=== PATIENT | male | born 1950 | race Caucasian/White ===

== ENCOUNTER 2017-04-21 13:03 | Observation (INO) ==
--- NOTE | 2017-04-21 13:22 | Emergency Department Note ---
Disposition Clinical Impression: Alcohol abuse, History of fall Disposition: Admitted As Inpatient Condition: Critical General Adult HPI - General Chief complaint: ED Psychiatric Symptoms Stated complaint: withdrawal from alcohol Time Seen by Provider: 04/21/17 13:20 Source: patient, family Limitations: no limitations - History of Present Illness Pain Scale: 0 - Related Data Home Medications Medication Instructions Recorded Confirmed Budesonide/Formoterol 160/4.5 2 puff IH BIDR 09/04/16 04/21/17 [Symbicort 160/4.5] Temazepam [Restoril] 30 mg PO HS 11/06/16 04/21/17 Albuterol Sulfate [Proair 2 puff IH Q4-6H PRN 04/21/17 04/21/17 Respiclick] Aspirin Enteric Coated [Aspirin EC] 81 mg PO DAILY 04/21/17 04/21/17 Kathe Back & Body 1 tab PO Q6H PRN 04/21/17 04/21/17 Cod Liver Oil 1 each PO DAILY 04/21/17 04/21/17 Cyanocobalamin (Vitamin B-12) 1,000 mcg PO DAILY 04/21/17 04/21/17 [Vitamin B12] Melatonin 10 mg PO HS PRN 04/21/17 04/21/17 Multivit-Min/FA/Lycopen/Lutein 1 each PO DAILY 04/21/17 04/21/17 [Centrum Silver Tablet] Vitamin B Complex [B Complex] 1 each PO DAILY 04/21/17 04/21/17 Vitamin E (Dl,Tocopheryl Acet) 400 unit PO BID 04/21/17 04/21/17 [Vitamin E] Allergies Allergy/AdvReac Type Severity Reaction Status Date / Time No Known Allergies Allergy Verified 11/06/16 11:53 Past Medical History - Past Medical History Medical history: Reports: COPD Surgical history: Reports: appendectomy Psychiatric history: Reports: no psych history - Social History Smoking Status: Current every day smoker Smokeless Tobacco Status: No Alcohol use: Reports: heavy Drug use: Reports: none Physical Exam - General Limitations: no limitations General appearance: alert, in no apparent distress Course Vital Signs Temperature 97.6 F 04/21/17 13:06 Pulse Rate 115 04/21/17 13:06 Respiratory Rate 20 04/21/17 13:06 Blood Pressure 147/95 04/21/17 13:06 O2 Sat by Pulse Oximetry 95 04/21/17 13:06 Temperature 97.5 F L 04/21/17 17:08 Pulse Rate 95 04/21/17 17:08 Respiratory Rate 18 04/21/17 17:08 Blood Pressure 145/84 04/21/17 17:08 O2 Sat by Pulse Oximetry 96 04/21/17 17:19 Oxygen Delivery Oxygen Delivery Room Air Medical Decision Making - Lab Data Result diagrams: 04/21/17 13:58 04/21/17 13:58 Lab Results 04/21/17 04/21/17 04/21/17 Range/Units 13:58 13:58 13:58 WBC 5.6 (4.3-11.1) K/mcL RBC 4.19 (4.19-5.50) M/mcL Hgb 14.9 (12.9-16.9) g/dL Hct 43.3 (37.5-50.1) % MCV 103.3 H (83.0-100.0) fL MCH 35.6 H (28.0-33.3) pg MCHC 34.4 (31.6-35.5) g/dL RDW 11.8 (11.5-14.5) % Plt Count 85 L (140-400) K/mcL MPV 9.5 (9.4-12.4) fL Immature Gran % 0.2 (0-4) % Seg Neutrophils % 76.9 % Lymphocytes % 11.9 % Monocytes % 8.6 % Eosinophils % 1.1 % Basophils % 1.3 % Neutrophils # 4.3 (1.6-8.9) K/mcL Lymphocytes # 0.7 (0.6-4.6) K/mcL Monocytes # 0.5 (0.0-1.3) K/mcL Eosinophils # 0.1 (0.0-0.6) K/mcL Basophils # 0.1 (0.0-0.2) K/mcL Immature Plt Fraction 5.8 (1.1-6.1) % Sodium 141 (136-145) mEq/L Potassium 3.6 (3.5-4.5) mEq/L Chloride 97 L (98-109) mEq/L Carbon Dioxide 26 (19-29) mEq/L BUN 13 (8-26) mg/dL Creatinine 0.64 L (0.72-1.25) mg/dL Est GFR ( Amer) > 60 (> 60) Est GFR (Non-Af Amer) > 60 (> 60) BUN/Creatinine Ratio 20 (6-26) Glucose 80 (70-99) mg/dL Calculated Osmolality 291 (280-300) Calcium 9.5 (8.6-10.8) mg/dL Magnesium 1.6 (1.6-2.6) mg/dL Total Bilirubin 1.9 H (0.2-1.2) mg/dL Direct Bilirubin 1.0 H (0.0-0.5) mg/dL Indirect Bilirubin 0.9 (0.0-1.2) mg/dL AST 267 H (5-34) Units/L ALT 133 H (0-55) Units/L Alkaline Phosphatase 74 (38-126) Units/L Serum Total Protein 7.5 (6.0-8.3) g/dL Albumin 3.9 (3.5-5.0) g/dL Globulin 3.6 H (2.4-3.5) g/dL Albumin/Globulin Ratio 1.1 (1.1-2.2) Salicylates < 5.0 L (15-30) mg/dL Acetaminophen < 1.0 L (10-30) mcg/mL Ethyl Alcohol 246 H (0-10) mg/dL Attestation Statement - Attestation Attestation: I examined this patient and my medical decision-making was reviewed with the MAIL CARRIER AND CLERK/PA/Advanced Practice Nurse/Resident Physician. I agree with the documented findings, disposition and treatment plan as described except to the extent set forth below. [id number] time provided Family brings patient to the emergency department with concerns for altered mental status and alcohol withdrawal. Patient is disheveled on exam but not in any acute distress. He is mildly tachycardic
[2017-04-21] MEDS ORDERED: diazePAM 10 MG/2 ML SYRINGE IVP ONE (13:24)
--- NOTE | 2017-04-21 13:46 | Emergency Department Note ---
Disposition Clinical Impression: Alcohol abuse, History of fall Disposition: Admitted As Inpatient Condition: Critical Referrals: NO,PCP [Primary Care Provider] - Forms: ED Satisfaction Letter Time of Disposition: 14:38 General Adult HPI - General Chief complaint: ED Psychiatric Symptoms Stated complaint: withdrawal from alcohol Time Seen by Provider: 04/21/17 13:20 Source: patient, family Limitations: no limitations - History of Present Illness HPI Narrative: Mr. Mathis, a 66yo male, brought by son for hx alcoholism. Reports dizziness, confusion, falls for the past 3 months. He realizes he has had enough and wishes to quit. PMH: COPD Meds: Advair, ProAir Habits: EtOH - 750mL day vodka + several beers daily since early adulthood. Last drink was last night. ROS: Pos: Chronic calculus, falls, confusion, dizziness Neg: Fever, chills, nausea, vomiting, abdominal pain, chest pains, palpitations , unusual weakness or fatigue Pain Scale: 0 - Related Data Home Medications Medication Instructions Recorded Confirmed Budesonide/Formoterol 160/4.5 2 puff IH BIDR 09/04/16 09/04/16 [Symbicort 160/4.5] DiphenhydraMINE [Benadryl] 25 mg PO HS 09/04/16 09/04/16 Mucinex 11/06/16 11/06/16 Temazepam 11/06/16 Previous Rx's Medication Instructions Recorded Folic Acid 1 mg PO DAILY #60 tablet 09/10/16 Thiamine (B-1) [Vitamin B-1] 100 mg PO DAILY #60 tablet 09/10/16 Hydrocodone/Acetaminophen [[place] 1 tab PO Q6H PRN #16 tab 11/06/16 5-325 Tablet] Ibuprofen [Motrin] 800 mg PO Q8HR PRN #30 tablet 11/06/16 Allergies Allergy/AdvReac Type Severity Reaction Status Date / Time No Known Allergies Allergy Verified 11/06/16 11:53 All systems ED: reviewed and negative except as stated. Past Medical History - Past Medical History Medical history: Reports: COPD Surgical history: Reports: appendectomy Psychiatric history: Reports: no psych history - Social History Smoking Status: Current every day smoker Smokeless Tobacco Status: No Alcohol use: Reports: heavy Drug use: Reports: none Physical Exam Vital Signs Reviewed General: Patient is alert, oriented, and in no acute distress. He appears cachectic with likely protein calorie malnutrition. HEENT: No facial asymmetry. Head is normocephalic. Mild ecchymosis at the temporal corner of the right eye without swelling, abrasion, laceration. PERRLA , EOMI. oral mucosa moist. Trachea midline. Cardiovascular: Heart regular rate and rhythm without clicks, rubs, gallops, or murmurs. No JVD. PMI nondisplaced. No pedal edema. Bilateral radial and posterior tibial pulses 2/4. No carotid bruit. Respiratory: Symmetric chest rise with good respiratory effort. Bilateral breath sounds are clear without wheezing, crackles, or rhonchi. Abdomen: Scaphoid abdomen. Bowel sounds present normoactive x-4 quadrants. Abdomen is soft, nondistended, and nontender. No organomegaly noted. Musculoskeletal: Spontaneously moving all extremities. Neuro: Cranial nerves II through XII without deficit. Sensation light touch intact. Skin: Ecchymosis down patient's bilateral legs with superficial abrasions over the bony prominences of his patella and fibular head. Eschar on patient's left forearm and left upper arm. Psych: Patient's affect is appropriate for situation. - General Limitations: no limitations General appearance: alert, in no apparent distress Course Course Narrative: Concern for wernicke's (confusion, ataxia/falls, however no nystagmus on exam) as well as delirium tremors, electrolyte imbalances, and withdrawal. Patient's lab work is unremarkable. Alcohol level 246. Spoke with the admitting hospitalist, Dr. Vick, who agrees to accept the patient for alcohol detoxification/withdrawal, history for falls, history of inability to care for himself. Vital Signs Temperature 97.6 F 04/21/17 13:06 Pulse Rate 115 04/21/17 13:06 Respiratory Rate 20 04/21/17 13:06 Blood Pressure 147/95 04/21/17 13:06 O2 Sat by Pulse Oximetry 04/21/17 13:06 Temperature 97.6 F 04/21/17 13:06 Pulse Rate 97 04/21/17 13:40 Respiratory Rate 19 04/21/17 13:40 Blood Pressure 146/87 04/21/17 13:40 O2 Sat by Pulse Oximetry 95 04/21/17 13:40 Oxygen Delivery Oxygen Delivery Room Air Medical Decision Making - Lab Data Result diagrams: 04/21/17 13:58 04/21/17 13:58 Lab Results 04/21/17 04/21/17 04/21/17 Range/Units 13:58 13:58 13:58 WBC 5.6 (4.3-11.1) K/mcL RBC 4.19 (4.19-5.50) M/mcL Hgb 14.9 (12.9-16.9) g/dL Hct 43.3 (37.5-50.1) % MCV 103.3 H (83.0-100.0) fL MCH 35.6 H (28.0-33.3) pg MCHC 34.4 (31.6-35.5) g/dL RDW 11.8 (11.5-14.5) % Plt Count 85 L (140-400) K/mcL MPV 9.5 (9.4-12.4) fL Immature Gran % 0.2 (0-4) % Seg Neutrophils % 76.9 % Lymphocytes % 11.9 % Monocytes % 8.6 % Eosinophils % 1.1 % Basophils % 1.3 % Neutrophils # 4.3 (1.6-8.9) K/mcL Lymphocytes # 0.7 (0.6-4.6) K/mcL Monocytes # 0.5 (0.0-1.3) K/mcL Eosinophils # 0.1 (0.0-0.6) K/mcL Basophils # 0.1 (0.0-0.2) K/mcL Immature Plt Fraction 5.8 (1.1-6.1) % Sodium 141 (136-145) mEq/L Potassium 3.6 (3.5-4.5) mEq/L Chloride 97 L (98-109) mEq/L Carbon Dioxide 26 (19-29) mEq/L BUN 13 (8-26) mg/dL Creatinine 0.64 L (0.72-1.25) mg/dL Est GFR ( Amer) > 60 (> 60) Est GFR (Non-Af Amer) > 60 (> 60) BUN/Creatinine Ratio 20 (6-26) Glucose 80 (70-99) mg/dL Calculated Osmolality 291 (280-300) Calcium 9.5 (8.6-10.8) mg/dL Magnesium 1.6 (1.6-2.6) mg/dL Total Bilirubin 1.9 H (0.2-1.2) mg/dL Direct Bilirubin 1.0 H (0.0-0.5) mg/dL Indirect Bilirubin 0.9 (0.0-1.2) mg/dL AST 267 H (5-34) Units/L ALT 133 H (0-55) Units/L Alkaline Phosphatase 74 (38-126) Units/L Serum Total Protein 7.5 (6.0-8.3) g/dL Albumin 3.9 (3.5-5.0) g/dL Globulin 3.6 H (2.4-3.5) g/dL Albumin/Globulin Ratio 1.1 (1.1-2.2) Salicylates < 5.0 L (15-30) mg/dL Acetaminophen < 1.0 L (10-30) mcg/mL Ethyl Alcohol 246 H (0-10) mg/dL
[2017-04-21 14:07] LABS: Eosinophils % 1.1 %
[2017-04-21 14:09] LABS: Basophils # 0.1 K/mcL (0.0-0.2); Basophils % 1.3 %; Eosinophils # 0.1 K/mcL (0.0-0.6); Hematocrit 43.3 % (37.5-50.1); Hemoglobin 14.9 g/dL (12.9-16.9); Immature Granulocytes % 0.2 % (0-4); Immature Platelets 5.8 % (1.1-6.1); Lymphocytes # 0.7 K/mcL (0.6-4.6); Lymphocytes % 11.9 %; Mean Corpuscular HGB Conc 34.4 g/dL (31.6-35.5); Mean Corpuscular Hemoglobin 35.6 pg (28.0-33.3); Mean Corpuscular Volume 103.3 fL (83.0-100.0); Mean Platelet Volume 9.5 fL (9.4-12.4); Monocytes # 0.5 K/mcL (0.0-1.3); Monocytes % 8.6 %; Neutrophils # 4.3 K/mcL (1.6-8.9); Red Blood Count 4.19 M/mcL (4.19-5.50); Red Cell Distribution Width 11.8 % (11.5-14.5); Segmented Neutrophils % 76.9 %
[2017-04-21 14:21] LABS: Alanine Aminotransferase 133 Units/L (0-55); Albumin 3.9 g/dL (3.5-5.0); Albumin/Globulin Ratio 1.1 (1.1-2.2); Alkaline Phosphatase 74 Units/L (38-126); Aspartate Amino Transferase 267 Units/L (5-34); BUN/Creatinine Ratio 20 (6-26); Bilirubin,Indirect 0.9 mg/dL (0.0-1.2); Bilirubin,Total 1.9 mg/dL (0.2-1.2); Blood Urea Nitrogen 13 mg/dL (8-26); Calcium 9.5 mg/dL (8.6-10.8); Carbon Dioxide 26 mEq/L (19-29); Chloride 97 mEq/L (98-109); Ethanol 246 mg/dL (0-10); Globulin 3.6 g/dL (2.4-3.5); Glucose 80 mg/dL (70-99); Osmolality,Calculated 291 (280-300); Potassium 3.6 mEq/L (3.5-4.5); Sodium 141 mEq/L (136-145); Total Protein 7.5 g/dL (6.0-8.3); eGFR For African Americans > 60 (> 60); eGFR For Non-African Americans > 60 (> 60)
[2017-04-21 14:23] LABS: Acetaminophen < 1.0 mcg/mL (10-30); Salicylate < 5.0 mg/dL (15-30)
[2017-04-21] MEDS: Thiamine (B-1) 100 MG, Folic Acid 1 MG, MVI, adult with vitamin K 10 ML in 0.9 % Sodi... IVPB SCH ×2 (14:25→20:54)
[2017-04-21 14:27] LABS: Platelet Count 85 K/mcL (140-400)
[2017-04-21] MEDS ORDERED: Nicotine 21 MG PATCH.TD24 TD SCH (15:15)
[2017-04-21] MEDS ORDERED: Acetaminophen 325 MG TABLET PO PRN (16:08)
[2017-04-21] MEDS ORDERED: Naloxone 0.4 MG/ML INJ IVP PRN (16:08)
[2017-04-21] MEDS ORDERED: *HR* LORazepam 2 MG/ML VIAL IVP PRN ×2 (16:14)
--- NOTE | 2017-04-21 16:41 | Internal Med History&Physical ---
<Mami Reynaga - Last Filed: 04/21/17 17:09> Date of Encounter: 04/21/17 Time of Encounter: 16:27 Assessment and Plan (1) Alcohol abuse Current visit: Yes Status: Acute 1 patient has a long history of alcohol abuse he drinks approximately 700 mL cephalic Daily as well as several beers. Patient requesting alcoholic rehabilitation. His last drink was last night. Presently no tremors noted we will place patient on CIWA precautions 2 continue with banana bag IV daily 3 contemplated placing patient on Librium however elevated LFTs may need Valium and Ativan is not adequate coverage 4 seizure precautions 5 fall precautions 6 we will consult social media marketer for alcohol rehabilitation placement 7 consult nutritional services (2) Cigarette smoker Current visit: No Status: Acute 1 encouraged patient to stop smoking. We will continue with the nicotine patch daily (3) Thrombocytopenia Current visit: No Status: Acute 1 presently patient's platelets 85. 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 Patient to continue with followup with neurology, consult as needed 2fall precaution 3 PT consult (5) Elevated LFTs Current visit: No Status: Acute 1 [id number], ALT 133 elevated hx of of ETOH abuse will continue to monitor 2 Avoid hepatoxins 3 advise seeing GI as outpatient and consult as needed (6) DVT prophylaxis Current visit: No Status: Acute Patient splints are 85 patient's high risk for falls we will place and SCDs for now (7) COPD (chronic obstructive pulmonary disease) Current visit: No Status: Chronic 1 Stable now conitnue with bronchodilators as needed 2 O2 as needed to maintain spo2 >92% Qualifiers: COPD type: unspecified COPD Qualified Code(s): J44.9 - Chronic obstructive pulmonary disease, unspecified Internal Medicine - H&P: HPI Chief complaint: I want to quit drinking Admitted From: Emergency Dept Plans for Post Hospital Care: Transfer Other History of present illness: Mr. Mathis is a 66 year old male has local history of COPD and alcohol abuse tobacco abuse. Information obtained from medical records patient and patient's son who is at bedside. According to patient he has a long history of alcohol use started when he was approximately 19 years old. He consumes 750 ML's of vodka Plus several beers daily. According to the son he has been experiencing increasing confusion falls over the past few months. He has a unsteady gait and he lives alone. The son states that proximally 7 AM the patient arrived at his home BP is Seferino Glover. With his son came out patient voiced that he did not want to live like this anymore and wanted to stop drinking. The patient states his last drink was last night. She was brought to the ER for further evaluation. According to ER records on presentation patient was slightly tachycardic heart rate 1:15 with he was given a banana bag as well as Valium. Lab work was obtained which did reveal some elevation in his LFTs. Rest of lab work was unremarkable. CT of head was obtained which showed no acute intracranial abnormalities or bleeds. Patient was admitted for further workup and evaluation. Presently patient appears cachectic, he has bruises in his lower extremities as well as upper extremities at several stages of healing as well as multiple abrasions. Patient states he frequently falls at least once or twice a month. Patient is alert and oriented 3 in however he questions several times who I am and if I will bring him something to eat. The question who the president of [facility] he does not know. Cranial nerves II through XII are intact. Noted horizontal nystagmus when gazing to right. Patient denies any recent head injuries. He denies any fevers chills nausea vomiting diarrhea he does admit to weight loss. He denies any melena hematochezia or hematemesis. No tremors or seizure activity noted at this time. Patient denies any previous seizure activity. His lung sounds are clear heart sounds S1 and S2 with no rubs clicks murmurs noted he is hemodynamically stable at this time. Discussed case with Dr. Gleason who agrees with plan Past Med Surg Social Fam HX - Past Medical History Medical history: COPD Psychiatric history: no psych history - Past Surgical History Surgical History: appendectomy - Social History Smoking Status: Current every day smoker Smokeless Tobacco Status: No Alcohol use: heavy Drug use: none - Family History Father Living Status: Age at : 82 Cause of : heart disease Internal Medicine - H&P: Meds Budesonide/Formoterol 160/4.5 [Symbicort 160/4.5] 2 puff IH BIDR 09/04/16 [ History] Temazepam [Restoril] 30 mg PO HS 11/06/16 [History] Albuterol Sulfate [Proair Respiclick] 2 puff IH Q4-6H PRN 04/21/17 [History] Aspirin Enteric Coated [Aspirin EC] 81 mg PO DAILY 04/21/17 [History] Kathe Back & Body 1 tab PO Q6H PRN 04/21/17 [History] Cod Liver Oil 1 each PO DAILY 04/21/17 [History] Cyanocobalamin (Vitamin B-12) [Vitamin B12] 1,000 mcg PO DAILY 04/21/17 [History ] Melatonin 10 mg PO HS PRN 04/21/17 [History] Multivit-Min/FA/Lycopen/Lutein [Centrum Silver Tablet] 1 each PO DAILY 04/21/17 [History] Vitamin B Complex [B Complex] 1 each PO DAILY 04/21/17 [History] Vitamin E (Dl,Tocopheryl Acet) [Vitamin E] 400 unit PO BID 04/21/17 [History] Allergies No Known Allergies Allergy (Verified 11/06/16 11:53) All Systems PM: A 10-system review of systems was performed and is negative for pertinent findings except as documented above in the HPI. - Constitutional Constitutional: anorexia, falls, weight loss, no chills, no fever(s), no night sweats - EENT Eyes: no change in vision, no discharge, no pain, no photophobia - Cardiovascular Cardiovascular ROS IM: no chest pain, no diaphoresis, no dyspnea, no lightheadedness, no palpitations, no syncope - Respiratory Respiratory: no cough, no dyspnea, no wheezing, no excessive phlegm production - Gastrointestinal Gastrointestinal: no abdominal pain, no diarrhea, no hematemesis, no hematochezia, no melena, no nausea, no vomiting - Musculoskeletal Musculoskeletal ROS IM: no numbness, no tingling - Integumentary Additional comments: Bruises as well as abrasions - Neurological Neurological ROS: abnormal gait, frequent falls - Psychiatric Psychiatric: confusion - Hematologic/Lymphatic Hematologic/Lymphatic: easy bleeding - Constitutional Vitals: Temp Pulse Resp BP Pulse Ox 97.6 F 85 13 114/85 96 04/21/17 13:06 04/21/17 15:02 04/21/17 16:04 04/21/17 16:04 04/21/17 15:02 General appearance: Present: cachectic, A&O X 3, answers questions appropriately - Head Head exam: Present: atraumatic, normocephalic - Eye Eye exam: Present: nystagmus, PERRL, conjuntiva pink, sclera anicteric Pupils: Present: PERRL - Neck Neck exam general surgery: Present: supple, trachea midline. Absent: lymphadenopathy - Respiratory Respiratory exam: Present: CTAB. Absent: accessory muscle use, rales, rhonchi, wheezes - Cardiovascular Cardiovascular exam: Present: RRR, +S1, +S2. Absent: diastolic murmur, gallop, rubs, systolic murmur - GI/Abdominal GI/Abdominal exam: Present: normal bowel sounds, soft, no peritoneal signs. Absent: distended, tenderness - Extremities Exam Extremities exam: Present: warm, radial pulses palpable and symetrical. Absent : calf tenderness, cyanotic, pedal edema - Neurological Exam Neurological exam: Present: CN II-XII intact, oriented X3, no focal deficits, strengths equal and symetr throughout. Absent: pronater drift, facial droop, speech deficit - Skin Skin exam: Present: abrasion, dry, intact Internal Med - H&P Results - Labs CBC & Chem 7: 04/21/17 13:58 04/21/17 13:58 - Diagnostic Studies Other Images Additional comments: Head CT 04/21/17 13:45 IMPRESSION: No acute intracranial abnormality. D/ / Mauricio Castañeda MD / Mauricio Castañeda MD Interpreting Provider: Mauricio Castañeda MD <Nuvia Vick - Last Filed: 04/21/17 19:39> Date of Encounter: 04/21/17 Internal Medicine - H&P: HPI History of present illness: Mr. Mathis is a 66 year old male All Systems PM: A 10-system review of systems was performed and is negative for pertinent findings except as documented above in the HPI. - Constitutional Vitals: Temp Pulse Resp BP Pulse Ox 98.0 F 85 14 158/75 94 04/21/17 18:49 04/21/17 18:49 04/21/17 18:49 04/21/17 18:49 04/21/17 18:49 Internal Med - H&P Results - Labs CBC & Chem 7: 04/21/17 13:58 04/21/17 13:58 - Attending Attestation I examined this patient and my medical decision-making was reviewed with the Resident Physician. I agree with the documented findings, disposition and treatment plan as described
[2017-04-21] MEDS: 0.9 % Sodium Chloride 1,000 ML IVC SCH (16:59)
[2017-04-21] MEDS: Ibuprofen 400 MG TABLET PO PRN (16:59)
[2017-04-21] MEDS ORDERED: Albuterol 2.5 MG/3 ML NEBULIZER IH PRN (17:09)
[2017-04-21] MEDS: Nicotine 2 MG GUM BC PRN (20:59)
[2017-04-21] MEDS: Temazepam 15 MG CAPSULE PO PRN (21:50)
[2017-04-21 22:40] LABS: Bilirubin,Urine Moderate (Negative); Blood,Urine Negative (Negative); Clarity,Urine Cloudy (Clear); Color,Urine Orange (Yellow); Glucose,Urine (UA) Normal (Normal); Ketones,Urine 80 mg/dL (Negative); Leukocyte Esterase,Urine Trace (Negative); Nitrite,Urine Negative (Negative); Protein,Urine 30 mg/dL (Neg-Trace); Specific Gravity,Urine > 1.030 (1.010-1.025); Urobilinogen,Urine Normal (Normal)
[2017-04-21 22:46] LABS: Amphetamine Screen,Urine Negative ng/mL (Cutoff=1000); Barbiturate Screen,Urine Negative ng/mL (Cutoff=200); Benzodiazepines Screen,Urine Positive ng/mL (Cutoff=200); Cannabinoid Screen,Urine Negative ng/mL (Cutoff = 50); Cocaine Screen,Urine Negative ng/mL (Cutoff= 300); Opiate Screen,Urine Negative ng/mL (Cutoff=300); Phencyclidine Screen,Urine Negative ng/mL (Cutoff=25)
[2017-04-21 22:52] LABS: Hyaline Casts,Urine Few per lpf (None-Few); Mucus,Urine Many (Few)
[2017-04-21 22:53] LABS: Bacteria,Urine Few per hpf (None-Few); RBC,Urine 0-3 per hpf (0-3); WBC,Urine 0-3 per hpf (0-3)
[2017-04-22 05:38] LABS: Basophils # 0.1 K/mcL (0.0-0.2); Basophils % 1.2 %; Eosinophils # 0.1 K/mcL (0.0-0.6); Eosinophils % 2.8 %; Hemoglobin 12.9 g/dL (12.9-16.9); Immature Granulocytes % 0.2 % (0-4); Immature Platelets 7.4 % (1.1-6.1); Lymphocytes # 0.5 K/mcL (0.6-4.6); Lymphocytes % 12.4 %; Mean Corpuscular HGB Conc 35.8 g/dL (31.6-35.5); Mean Corpuscular Hemoglobin 37.3 pg (28.0-33.3); Mean Platelet Volume 10.7 fL (9.4-12.4); Monocytes # 0.4 K/mcL (0.0-1.3); Monocytes % 9.2 %; Neutrophils # 3.2 K/mcL (1.6-8.9); Red Blood Count 3.46 M/mcL (4.19-5.50); Red Cell Distribution Width 11.9 % (11.5-14.5); Segmented Neutrophils % 74.2 %
[2017-04-22 05:58] LABS: Platelet Count 64 K/mcL (140-400)
[2017-04-22 06:04] LABS: BUN/Creatinine Ratio 25 (6-26); Blood Urea Nitrogen 15 mg/dL (8-26); Calcium 8.6 mg/dL (8.6-10.8); Carbon Dioxide 26 mEq/L (19-29); Chloride 101 mEq/L (98-109); Glucose 87 mg/dL (70-99); Magnesium 1.4 mg/dL (1.6-2.6); Osmolality,Calculated 288 (280-300); Sodium 139 mEq/L (136-145); eGFR For African Americans > 60 (> 60); eGFR For Non-African Americans > 60 (> 60)
[2017-04-22 06:06] LABS: Potassium 3.3 mEq/L (3.5-4.5)
[2017-04-22] MEDS: Nicotine 2 MG GUM BC PRN ×2 (06:40→12:03)
[2017-04-22] MEDS: Pantoprazole 40 MG VIAL IVP SCH (08:37)
[2017-04-22] MEDS: Potassium Chloride Elixir 20 MEQ/15 ML UDC PO SCH (08:37)
[2017-04-22] MEDS: 0.9 % Sodium Chloride 1,000 ML IVC SCH (13:20)
--- NOTE | 2017-04-22 17:04 | Internal Med Progress Note ---
Date of Encounter: 04/22/17 Time of Encounter: 17:01 - Assessment and plan (1) Alcohol abuse Current Visit: No Status: Chronic Assessment and plan: admitted for detox, he wishes to quit. no signs of withdrawal or seizures at this time continue CINY protocol. social work consult for placement. (2) Elevated LFTs Current Visit: No Status: Acute Assessment and plan: possible 2/2 Alcoholic liver disease. will hold libriium now. (3) COPD (chronic obstructive pulmonary disease) Current Visit: No Status: Chronic Assessment and plan: not in exacerbation. o2 prn. albuterol prn Qualifiers: COPD type: unspecified COPD Qualified Code(s): J44.9 - Chronic obstructive pulmonary disease, unspecified - Subjective Interval history: patient seen at the bedside, admitted for alcohol detox. he is a chronic drinker and wishes to quit. social work has been consulted, no signs of withdrawal as of now. - Constitutional Vitals: Temp Pulse Resp BP Pulse Ox 98.4 F 86 18 160/94 94 04/22/17 15:45 04/22/17 15:45 04/22/17 15:45 04/22/17 15:45 04/22/17 15:45 General appearance: Present: cachectic, disheveled, A&O X 3, answers questions appropriately Exam: neck- supple chest- b/l clear, no added sounds CVS-s1 and s2, no mr/g abd-soft, non tender, bs are present ext- no edema ,no tremors or tongue fasciculations Internal Medicine: Result - Labs CBC & Chem 7: 04/22/17 04:54 04/22/17 04:54 Labs: Short CBC 04/22/17 Range/Units 04:54 WBC 4.3 (4.3-11.1) K/mcL Hgb 12.9 D (12.9-16.9) g/dL Hct 36.0 L (37.5-50.1) % Plt Count 64 L (140-400) K/mcL Neutrophils # 3.2 (1.6-8.9) K/mcL BMP 04/22/17 04:54 Sodium 139 Potassium 3.3 L Chloride 101 Carbon Dioxide 26 BUN 15 Creatinine 0.61 L Glucose 87 Calcium 8.6 Urine 04/21/17 Range/Units 22:27 Urine Color [place] A (Yellow) Urine Clarity Cloudy A (Clear) Urine pH 6.0 (5.0-8.0) pH Units Ur Specific [place] > 1.030 H (1.010-1.025) Urine Protein 30 H (Neg-Trace) mg/dL Urine Glucose (UA) Normal (Normal) mg/dL Consult Discharge Plan - Plan Referrals: Maria L Quick CNP [Advanced Practice Nurse] - 05/13/17 11:00 am
[2017-04-22] MEDS: Thiamine (B-1) 100 MG, Folic Acid 1 MG, MVI, adult with vitamin K 10 ML in 0.9 % Sodi... IVPB SCH (18:17)
[2017-04-22] MEDS: Temazepam 15 MG CAPSULE PO PRN (20:43)
[2017-04-22] MEDS: Ibuprofen 400 MG TABLET PO PRN (20:43)
[2017-04-23] MEDS: Pantoprazole 40 MG VIAL IVP SCH (07:53)
[2017-04-23] MEDS: Potassium Chloride Elixir 20 MEQ/15 ML UDC PO SCH (07:53)
[2017-04-23] MEDS: Nicotine 2 MG GUM BC PRN ×5 (09:18→18:44)
[2017-04-23] MEDS: 0.9 % Sodium Chloride 1,000 ML IVC SCH (09:18)
[2017-04-23] MEDS ORDERED: *HR* LORazepam 2 MG/ML VIAL IVP ONE (11:17)
--- NOTE | 2017-04-23 15:10 | Consult Note ---
Date of Encounter: 04/23/17 Time of Encounter: 14:40 Assessment & Recommendation (1) Alcohol dependence with alcohol-induced mood disorder Current visit: Yes Status: Acute Assessment & Recommendation: I discussed with the patient treatment options for depression including medication and therapy. He is agreeable to start a new medication, I discussed with him benefits and side effects of mirtazapine that will help him with sleep and appetite. He is willing to try it. Also I recommended that he seek individual therapy that will address his alcohol dependence and depression, he is agreeable also. Patient will be started on mirtazapine 15 mg at bedtime. There is no acute psychiatric condition that requires inpatient psychiatric hospitalization. Recommend referral to outpatient substance abuse and mental health resources. Thank you for consultation. History of Present Illness Patient: new to practice Requesting Physician: Basia Tam MD Reason for consult: Depression and alcohol dependence History of present illness: Mr. Mathis is a 66 year old male admitted for alcohol detoxification. Psychiatric consultation was requested to evaluate depression. From the records patient had long history of alcohol dependence and his alcohol level on admission was 246. UDS was positive for benzodiazepine. Patient was reported to have lost weight with a BMI of 16.7. Patient stated that he was given some antidepressants in the past and did not like its and stopped taking. He denied any previous psychiatric treatments or admissions to Hospital and denies any history of suicide attempts. He was concerned about his sleep and willing to take medication to help him sleep. He denied any suicidal ideation. When he was recovering well from his intoxication and his last CIWA score was 1. CC: Basia Tam MD Past Med Surg Social Fam HX - Past Medical History Medical history: COPD - Past Surgical History Surgical History: appendectomy - Social History Smoking Status: Current every day smoker Smokeless Tobacco Status: No Alcohol use: heavy Drug use: none - Family History Father Living Status: Age at : 82 Cause of : heart disease Medications & Allergies Budesonide/Formoterol 160/4.5 [Symbicort 160/4.5] 2 puff IH BIDR 09/04/16 [ History] Temazepam [Restoril] 30 mg PO HS 11/06/16 [History] Albuterol Sulfate [Proair Respiclick] 2 puff IH Q4-6H PRN 04/21/17 [History] Aspirin Enteric Coated [Aspirin EC] 81 mg PO DAILY 04/21/17 [History] Kathe Back & Body 1 tab PO Q6H PRN 04/21/17 [History] Cod Liver Oil 1 each PO DAILY 04/21/17 [History] Cyanocobalamin (Vitamin B-12) [Vitamin B12] 1,000 mcg PO DAILY 04/21/17 [History ] Melatonin 10 mg PO HS PRN 04/21/17 [History] Multivit-Min/FA/Lycopen/Lutein [Centrum Silver Tablet] 1 each PO DAILY 04/21/17 [History] Vitamin B Complex [B Complex] 1 each PO DAILY 04/21/17 [History] Vitamin E (Dl,Tocopheryl Acet) [Vitamin E] 400 unit PO BID 04/21/17 [History] Walker W Wheels [WHEELED WALKER] 1 each .ROUTE AD #1 each 04/23/17 [Rx] Allergies No Known Allergies Allergy (Verified 11/06/16 11:53) Mental Status Exam Patient orientation: Yes Person, Yes Time, Yes Place Level of alertness: Alert Patient appearance: Appropriate, Unkempt, Disheveled, Mal-nourished, Thin Behavior: calm, cooperative Psychomotor activity: Slowed Eye contact: Maintains Eye Contact Mood description: Anxious, Irritable Affect description: congruent with mood, constricted Speech pattern: Normal rate, Normal rhythm, Normal tone Speech volume: Normal Thought process: Linear, Goal Oriented Thought content: No Suicidal ideation, No Homicidal ideation, No Overt delusions Perceptual disturbances: No Auditory hallucinations, No Visual hallucinations Attention span: Capable of Focused Attention Memory description: Grossly Intact Patient reliability: Reliable Historian Intelligence estimate: Average Judgment: Limited Insight: Partial Results - Vital Signs Vital signs: Temp Pulse Resp BP Pulse Ox 98.5 F 98 16 120/83 97 04/23/17 11:31 04/23/17 11:31 04/23/17 11:31 04/23/17 11:31 04/23/17 11:31 - Labs Labs: Laboratory Last Values WBC 4.3 K/mcL (4.3-11.1) 04/22/17 04:54 RBC 3.46 M/mcL (4.19-5.50) L 04/22/17 04:54 Hgb 12.9 g/dL (12.9-16.9) D 04/22/17 04:54 Hct 36.0 % (37.5-50.1) L 04/22/17 04:54 MCV 104.0 fL (83.0-100.0) H 04/22/17 04:54 MCH 37.3 pg (28.0-33.3) H 04/22/17 04:54 MCHC 35.8 g/dL (31.6-35.5) H 04/22/17 04:54 RDW 11.9 % (11.5-14.5) 04/22/17 04:54 Plt Count 64 K/mcL (140-400) L 04/22/17 04:54 MPV 10.7 fL (9.4-12.4) 04/22/17 04:54 Immature Gran % 0.2 % (0-4) 04/22/17 04:54 Seg Neutrophils % 74.2 % 04/22/17 04:54 Lymphocytes % 12.4 % 04/22/17 04:54 Monocytes % 9.2 % 04/22/17 04:54 Eosinophils % 2.8 % 04/22/17 04:54 Basophils % 1.2 % 04/22/17 04:54 Neutrophils # 3.2 K/mcL (1.6-8.9) 04/22/17 04:54 Lymphocytes # 0.5 K/mcL (0.6-4.6) L 04/22/17 04:54 Monocytes # 0.4 K/mcL (0.0-1.3) 04/22/17 04:54 Eosinophils # 0.1 K/mcL (0.0-0.6) 04/22/17 04:54 Basophils # 0.1 K/mcL (0.0-0.2) 04/22/17 04:54 Immature Plt Fraction 7.4 % (1.1-6.1) H 04/22/17 04:54 Sodium 139 mEq/L (136-145) 04/22/17 04:54 Potassium 3.3 mEq/L (3.5-4.5) L 04/22/17 04:54 Chloride 101 mEq/L (98-109) 04/22/17 04:54 Carbon Dioxide 26 mEq/L (19-29) 04/22/17 04:54 BUN 15 mg/dL (8-26) 04/22/17 04:54 Creatinine 0.61 mg/dL (0.72-1.25) L 04/22/17 04:54 Est GFR ( Amer) > 60 (> 60) 04/22/17 04:54 Est GFR (Non-Af Amer) > 60 (> 60) 04/22/17 04:54 BUN/Creatinine Ratio 25 (6-26) 04/22/17 04:54 Glucose 87 mg/dL (70-99) 04/22/17 04:54 POC Glucose 170 (58-89) H 04/21/17 17:34 Calculated Osmolality 288 (280-300) 04/22/17 04:54 Calcium 8.6 mg/dL (8.6-10.8) 04/22/17 04:54 Magnesium 1.4 mg/dL (1.6-2.6) L 04/22/17 04:54 Total Bilirubin 1.9 mg/dL (0.2-1.2) H 04/21/17 13:58 Direct Bilirubin 1.0 mg/dL (0.0-0.5) H 04/21/17 13:58 Indirect Bilirubin 0.9 mg/dL (0.0-1.2) 04/21/17 13:58 AST 267 Units/L (5-34) H 04/21/17 13:58 ALT 133 Units/L (0-55) H 04/21/17 13:58 Alkaline Phosphatase 74 Units/L (38-126) 04/21/17 13:58 Serum Total Protein 7.5 g/dL (6.0-8.3) 04/21/17 13:58 Albumin 3.9 g/dL (3.5-5.0) 04/21/17 13:58 Globulin 3.6 g/dL (2.4-3.5) H 04/21/17 13:58 Albumin/Globulin Ratio 1.1 (1.1-2.2) 04/21/17 13:58 Urine Color [place] (Yellow) A 04/21/17 22:27 Urine Clarity Cloudy (Clear) A 04/21/17 22:27 Urine pH 6.0 pH Units (5.0-8.0) 04/21/17 22:27 Ur Specific [place] > 1.030 (1.010-1.025) H 04/21/17 22:27 Urine Protein 30 mg/dL (Neg-Trace) H 04/21/17 22:27 Urine Glucose (UA) Normal mg/dL (Normal) 04/21/17 22: Urine Ketones 80 mg/dL (Negative) H 04/21/17 22:27 Urine Blood Negative (Negative) 04/21/17 22:27 Urine Nitrite Negative (Negative) 04/21/17 22: Urine Bilirubin Moderate (Negative) H 04/21/17 22:27 Urine Urobilinogen Normal mg/dL (Normal) 04/21/17 22:27 Ur Leukocyte Esterase Trace (Negative) H 04/21/17 22:27 Urine Microscopic RBC 0-3 per hpf (0-3) 04/21/17 22:27 Urine Microscopic WBC 0-3 per hpf (0-3) 04/21/17 22:27 Urine Bacteria Few per hpf (None-Few) 04/21/17 22: Hyaline Casts Few per lpf (None-Few) 04/21/17 22:27 Urine Mucus Many (Few) H 04/21/17 22:27 Salicylates < 5.0 mg/dL (15-30) L 04/21/17 13:58 Urine Opiates Screen Negative ng/mL (Tbgziu=358) 04/21/17 22:27 Acetaminophen < 1.0 mcg/mL (10-30) L 04/21/17 13:58 Ur Barbiturates Screen Negative ng/mL (Fuaaxu=915) 04/21/17 22:27 Ur Phencyclidine Scrn Negative ng/mL (Cutoff=25) 04/21/17 22:27 Ur Amphetamines Screen Negative ng/mL (Vceiws=2549) 04/21/17 22:27 U Benzodiazepines Scrn Positive ng/mL (Dgayxd=459) H 04/21/17 22:27 Urine Cocaine Screen Negative ng/mL (Cutoff= 300) 04/21/17 22:27 U Marijuana (THC) Screen Negative ng/mL (Cutoff = 50) 04/21/17 22:27 Ethyl Alcohol 246 mg/dL (0-10) H 04/21/17 13:58 Consult Discharge Plan - Plan Referrals: Maria L Quick, [employer]INTER [employer]ADER [Advanced Practice Nurse] - 05/13/17 11:00 am
--- NOTE | 2017-04-23 17:05 | Internal Med Progress Note ---
Date of Encounter: 04/23/17 Time of Encounter: 17:01 - Assessment and plan (1) Alcohol abuse Current Visit: No Status: Chronic Assessment and plan: admitted for detox, he wishes to quit. no signs of withdrawal or seizures at this time continue CIWA protocol. PT/OT recommended HH. (2) Elevated LFTs Current Visit: No Status: Acute Assessment and plan: possible 2/2 Alcoholic liver disease. will hold libriium now. (3) COPD (chronic obstructive pulmonary disease) Current Visit: No Status: Chronic Assessment and plan: not in exacerbation. o2 prn. albuterol prn Qualifiers: COPD type: unspecified COPD Qualified Code(s): J44.9 - Chronic obstructive pulmonary disease, unspecified (4) Depression Current Visit: Yes Status: Acute Assessment and plan: seen by psych, has been added on mirtazapine and [facility] appreciate psych recommendation. Qualifiers: Depression Type: major depressive disorder Major depression recurrence: recurrent Active/Remission status: currently active Psychotic features: without psychotic features Qualified Code(s): F33.2 - Major depressive disorder, recurrent severe without psychotic features - Subjective Interval history: patient seen at the bedside, admitted for alcohol detox. he is a chronic drinker and wishes to quit. social work has been consulted, no signs of withdrawal as of now. thid morning he expressed that he is very depressed and needs help, psych was consulted at this time, social work and childbirth and infant care teacher in board, concern for unsafe dc given poor living condition and his mental status, dc postponed due to same. - Constitutional Vitals: Temp Pulse Resp BP Pulse Ox 97.8 F 91 16 159/89 96 04/23/17 15:45 04/23/17 15:45 04/23/17 15:45 04/23/17 15:45 04/23/17 15:45 General appearance: Present: cachectic, disheveled, A&O X 3, answers questions appropriately Exam: neck- supple chest- b/l clear, no added sounds CVS-s1 and s2, no mr/g abd-soft, non tender, bs are present ext- no edema ,no tremors or tongue fasciculations Internal Medicine: Result - Labs CBC & Chem 7: 04/22/17 04:54 04/22/17 04:54 Consult Discharge Plan - Plan Referrals: Maria L Quick CNP [Advanced Practice Nurse] - 05/13/17 11:00 am Prescriptions: Walker W Wheels [WHEELED WALKER] 1 each .ROUTE AD #1 each
[2017-04-23] MEDS: Temazepam 15 MG CAPSULE PO PRN (20:31)
[2017-04-23] MEDS: Mirtazapine 15 MG TABLET PO SCH (20:32)
[2017-04-24] MEDS: 0.9 % Sodium Chloride 1,000 ML IVC SCH (04:26)
[2017-04-24] MEDS: Pantoprazole 40 MG VIAL IVP SCH (08:02)
[2017-04-24] MEDS: Thiamine (B-1) 100 MG TABLET PO SCH (08:02)
[2017-04-24] MEDS: Multivit/Ca/Min/Fe/FA 1 TAB TABLET PO SCH (08:02)
[2017-04-24] MEDS: Potassium Chloride Elixir 20 MEQ/15 ML UDC PO SCH (08:03)
[2017-04-24] MEDS: Nicotine 2 MG GUM BC PRN ×6 (08:03→20:07)
[2017-04-24] MEDS: Folic Acid 1 MG TABLET PO SCH (08:03)
--- NOTE | 2017-04-24 11:01 | Internal Med Progress Note ---
Date of Encounter: 04/24/17 Time of Encounter: 10:59 - Assessment and plan (1) Alcohol abuse Current Visit: No Status: Chronic Assessment and plan: admitted for detox, he wishes to quit. no signs of withdrawal or seizures at this time continue CIWA protocol. PT/OT recommended HH. noted the nurse note that he is unsteady when he walks and almost fell on his way to the bathroom. (2) Elevated LFTs Current Visit: No Status: Acute Assessment and plan: possible 2/2 Alcoholic liver disease. will hold libriium now. (3) COPD (chronic obstructive pulmonary disease) Current Visit: No Status: Chronic Assessment and plan: not in exacerbation. o2 prn. albuterol prn Qualifiers: COPD type: unspecified COPD Qualified Code(s): J44.9 - Chronic obstructive pulmonary disease, unspecified (4) Depression Current Visit: Yes Status: Acute Assessment and plan: seen by psych, has been added on mir[facility]apine and [facility] appreciate psych recommendation. Qualifiers: Depression Type: major depressive disorder Major depression recurrence: recurrent Active/Remission status: currently active Psychotic features: without psychotic features Qualified Code(s): F33.2 - Major depressive disorder, recurrent severe without psychotic features - Subjective Interval history: patient seen at the bedside, admitted for alcohol detox. he is a chronic drinker and wishes to quit. social work has been consulted, no signs of withdrawal as of now. psych was consulted for depression, mirtazapine was added. at this time, social work and daycare worker in board, concern for unsafe dc given poor living condition and unsteady gait with fall risk, PT/OT recommended HH. will dc pending improved home situations. - Constitutional Vitals: Temp Pulse Resp BP Pulse Ox 98.4 F 80 18 150/91 98 04/24/17 06:45 04/24/17 06:45 04/24/17 06:45 04/24/17 06:45 04/24/17 06:45 General appearance: Present: cachectic, disheveled, A&O X 3, answers questions appropriately Exam: neck- supple chest- b/l clear, no added sounds CVS-s1 and s2, no mr/g abd-soft, non tender, bs are present ext- no edema ,no tremors or tongue fasciculations Internal Medicine: Result - Labs CBC & Chem 7: 04/22/17 04:54 04/22/17 04:54 - VTE Documentation of Mechanical Device: Intermittent pneumatic compression device Consult Discharge Plan - Plan Referrals: Maria L Quick, [employer]HER [employer] GRADER [Advanced Practice Nurse] - 05/13/17 11:00 am Prescriptions: Walker W Wheels [WHEELED WALKER] 1 each .ROUTE AD #1 each
[2017-04-24] MEDS: Mirtazapine 15 MG TABLET PO SCH (20:07)
[2017-04-24] MEDS: Temazepam 15 MG CAPSULE PO PRN (22:03)
[2017-04-25] MEDS: 0.9 % Sodium Chloride 1,000 ML IVC SCH ×2 (00:23→21:07)
[2017-04-25] MEDS: Nicotine 2 MG GUM BC PRN ×4 (09:07→18:40)
[2017-04-25] MEDS: Thiamine (B-1) 100 MG TABLET PO SCH (09:07)
[2017-04-25] MEDS: Multivit/Ca/Min/Fe/FA 1 TAB TABLET PO SCH (09:07)
[2017-04-25] MEDS: Potassium Chloride Elixir 20 MEQ/15 ML UDC PO SCH (09:07)
[2017-04-25] MEDS: Folic Acid 1 MG TABLET PO SCH (09:07)
--- NOTE | 2017-04-25 11:16 | Internal Med Progress Note ---
Date of Encounter: 04/25/17 Time of Encounter: 11:14 - Assessment and plan (1) Alcohol abuse Current Visit: No Status: Chronic Assessment and plan: admitted for detox, he wishes to quit. no signs of withdrawal or seizures at this time continue CIWA protocol. PT/OT recommended HH. noted the nurse note that he is unsteady when he walks and almost fell on his way to the bathroom. Will consult PT OT for reassessment, may need possible inpatient rehabilitation at discharge. (2) Elevated LFTs Current Visit: No Status: Acute Assessment and plan: possible 2/2 Alcoholic liver disease. will hold libriium now. (3) COPD (chronic obstructive pulmonary disease) Current Visit: No Status: Chronic Assessment and plan: not in exacerbation. o2 prn. albuterol prn Qualifiers: COPD type: unspecified COPD Qualified Code(s): J44.9 - Chronic obstructive pulmonary disease, unspecified (4) Depression Current Visit: Yes Status: Acute Assessment and plan: seen by psych, has been added on mirtazapine and notified that he does not need [facility] eval at this time appreciate psych recommendation. Qualifiers: Depression Type: major depressive disorder Major depression recurrence: recurrent Active/Remission status: currently active Psychotic features: without psychotic features Qualified Code(s): F33.2 - Major depressive disorder, recurrent severe without psychotic features - Subjective Interval history: patient seen at the bedside, admitted for alcohol detox. he is a chronic drinker and wishes to quit. social work has been consulted, no tremors, seizures or hallucinations, does complain of bad dreams. psych was consulted for depression, mirtazapine was added. at this time, social work and reservoir caretaker in board, concern for unsafe dc given poor living condition and unsteady gait with fall risk, PT/OT recommended HH. Will consider consulting PT OT again, may need placement to rehabilitation, will dc pending improved home situations. - Constitutional Vitals: Temp Pulse Resp BP Pulse Ox 98.2 F 77 16 150/82 97 04/25/17 07:56 04/25/17 07:56 04/25/17 07:56 04/25/17 07:56 04/25/17 07:56 General appearance: Present: cachectic, disheveled, A&O X 3, answers questions appropriately Exam: neck- supple chest- b/l clear, no added sounds CVS-s1 and s2, no mr/g abd-soft, non tender, bs are present ext- no edema ,no tremors or tongue fasciculations Internal Medicine: Result - Labs CBC & Chem 7: 04/22/17 04:54 04/22/17 04:54 - VTE Documentation of Mechanical Device: Intermittent pneumatic compression device Consult Discharge Plan - Plan Referrals: Maria L Quick, PHARMACY BUYER [Advanced Practice Nurse] - 05/13/17 11:00 am Prescriptions: Walker W Wheels [WHEELED WALKER] 1 each .ROUTE AD #1 each
[2017-04-25 11:43] LABS: Basophils % 0.9 %; Eosinophils # 0.3 K/mcL (0.0-0.6); Eosinophils % 5.6 %; Hematocrit 39.8 % (37.5-50.1); Hemoglobin 13.4 g/dL (12.9-16.9); Immature Granulocytes % 0.6 % (0-4); Immature Platelets 5.7 % (1.1-6.1); Lymphocytes # 0.8 K/mcL (0.6-4.6); Lymphocytes % 17.3 %; Mean Corpuscular HGB Conc 33.7 g/dL (31.6-35.5); Mean Corpuscular Hemoglobin 36.3 pg (28.0-33.3); Mean Corpuscular Volume 107.9 fL (83.0-100.0); Mean Platelet Volume 10.4 fL (9.4-12.4); Monocytes # 0.5 K/mcL (0.0-1.3); Monocytes % 11.1 %; Platelet Count 88 K/mcL (140-400); Red Blood Count 3.69 M/mcL (4.19-5.50); Red Cell Distribution Width 11.9 % (11.5-14.5); Segmented Neutrophils % 64.5 %
[2017-04-25 11:44] LABS: Platelet Estimate Decreased (Normal)
[2017-04-25 11:58] LABS: BUN/Creatinine Ratio 11 (6-26); Blood Urea Nitrogen 7 mg/dL (8-26); Calcium 10.1 mg/dL (8.6-10.8); Carbon Dioxide 29 mEq/L (19-29); Chloride 104 mEq/L (98-109); Glucose 148 mg/dL (70-99); Osmolality,Calculated 293 (280-300); Potassium 4.3 mEq/L (3.5-4.5); Sodium 141 mEq/L (136-145); eGFR For African Americans > 60 (> 60); eGFR For Non-African Americans > 60 (> 60)
[2017-04-25] MEDS: Mirtazapine 15 MG TABLET PO SCH (21:07)
[2017-04-25] MEDS: Temazepam 15 MG CAPSULE PO PRN (21:14)
[2017-04-26] MEDS: Multivit/Ca/Min/Fe/FA 1 TAB TABLET PO SCH (08:15)
[2017-04-26] MEDS: Thiamine (B-1) 100 MG TABLET PO SCH (08:15)
[2017-04-26] MEDS: Folic Acid 1 MG TABLET PO SCH (08:16)
[2017-04-26] MEDS: Potassium Chloride Elixir 20 MEQ/15 ML UDC PO SCH (08:16)
[2017-04-26] MEDS: Nicotine 2 MG GUM BC PRN ×2 (11:40→15:50)
--- NOTE | 2017-04-26 15:48 | Internal Med Progress Note ---
Date of Encounter: 04/26/17 Time of Encounter: 15:46 - Assessment and plan (1) Alcohol abuse Current Visit: No Status: Chronic Assessment and plan: admitted for detox, he wishes to quit. no signs of withdrawal or seizures at this time continue CIWA protocol. PT/OT recommended HH. noted the nurse note that he is unsteady when he walks and almost fell on his way to the bathroom. will inpatient rehabilitation at discharge. (2) Elevated LFTs Current Visit: No Status: Acute Assessment and plan: possible 2/2 Alcoholic liver disease. will hold libriium now. (3) COPD (chronic obstructive pulmonary disease) Current Visit: No Status: Chronic Assessment and plan: not in exacerbation. o2 prn. albuterol prn Qualifiers: COPD type: unspecified COPD Qualified Code(s): J44.9 - Chronic obstructive pulmonary disease, unspecified (4) Depression Current Visit: Yes Status: Acute Assessment and plan: seen by psych, has been added on [facility]apine and [facility] appreciate psych recommendation. Qualifiers: Depression Type: major depressive disorder Major depression recurrence: recurrent Active/Remission status: currently active Psychotic features: without psychotic features Qualified Code(s): F33.2 - Major depressive disorder, recurrent severe without psychotic features - Subjective Interval history: patient seen at the bedside, admitted for alcohol detox. he is a chronic drinker and wishes to quit. social work has been consulted, no tremors, seizures or hallucinations, does complain of bad dreams. psych was consulted for depression, mirtazapine was added. at this time, social work and personal care service provider in board, concern for unsafe dc given poor living condition and unsteady gait with fall risk, PT/OT recommended HH. alee will need rehab at dc given unsafe living conditions, soical work working [facility] - Constitutional Vitals: Temp Pulse Resp BP Pulse Ox 97.4 F L 75 18 146/82 96 04/26/17 11:21 04/26/17 11:21 04/26/17 11:21 04/26/17 11:21 04/26/17 11:21 General appearance: Present: cachectic, disheveled, A&O X 3, answers questions appropriately Exam: neck- supple chest- b/l clear, no added sounds CVS-s1 and s2, no mr/g abd-soft, non tender, bs are present ext- no edema ,no tremors or tongue fasciculations Internal Medicine: Result - Labs CBC & Chem 7: 04/25/17 11:25 04/25/17 11:25 - VTE Documentation of Mechanical Device: Intermittent pneumatic compression device Consult Discharge Plan - Plan Referrals: Maria L Quick CNP [Advanced Practice Nurse] - 05/13/17 11:00 am Prescriptions: Walker W Wheels [WHEELED WALKER] 1 each .ROUTE AD #1 each
[2017-04-26] MEDS: 0.9 % Sodium Chloride 1,000 ML IVC SCH (16:46)
[2017-04-26] MEDS: Temazepam 15 MG CAPSULE PO PRN (20:45)
[2017-04-26] MEDS: Ibuprofen 400 MG TABLET PO PRN (20:45)
[2017-04-26] MEDS: Mirtazapine 15 MG TABLET PO SCH (20:46)
[2017-04-27] MEDS: Folic Acid 1 MG TABLET PO SCH (08:11)
[2017-04-27] MEDS: Thiamine (B-1) 100 MG TABLET PO SCH (08:11)
[2017-04-27] MEDS: Nicotine 2 MG GUM BC PRN ×4 (08:11→21:10)
[2017-04-27] MEDS: Multivit/Ca/Min/Fe/FA 1 TAB TABLET PO SCH (08:11)
[2017-04-27] MEDS: Potassium Chloride Elixir 20 MEQ/15 ML UDC PO SCH (08:11)
[2017-04-27] MEDS: 0.9 % Sodium Chloride 1,000 ML IVC SCH (12:33)
--- NOTE | 2017-04-27 18:35 | Internal Med Progress Note ---
Date of Encounter: 04/27/17 Time of Encounter: 09:30 - Assessment and plan (1) Alcohol abuse Current Visit: No Status: Chronic Assessment and plan: admitted for detox, he wishes to quit. no signs of withdrawal or seizures at this time continue CIWA protocol. PT/OT recommended HH. will need inpatient rehabilitation at discharge due to concerns for safety at home, will apply for peer to peer (2) Elevated LFTs Current Visit: No Status: Acute Assessment and plan: possible 2/2 Alcoholic liver disease. will hold libriium now. (3) COPD (chronic obstructive pulmonary disease) Current Visit: No Status: Chronic Assessment and plan: not in exacerbation. o2 prn. albuterol prn Qualifiers: COPD type: unspecified COPD Qualified Code(s): J44.9 - Chronic obstructive pulmonary disease, unspecified (4) Depression Current Visit: Yes Status: Acute Assessment and plan: seen by psych, has been added [facility]apine and [facility] appreciate psych recommendation. Qualifiers: Depression Type: major depressive disorder Major depression recurrence: recurrent Active/Remission status: currently active Psychotic features: without psychotic features Qualified Code(s): F33.2 - Major depressive disorder, recurrent severe without psychotic features - Subjective Interval history: patient seen at the bedside, admitted for alcohol detox. he is a chronic drinker and wishes to quit. social work has been consulted, no tremors, seizures or hallucinations psych was consulted for depression, mirtazapine was added. at this time, social work and vehicle care specialist in board, concern for unsafe dc given poor living condition and unsteady gait with fall risk,on and off suicidal ideations, PT/OT recommended HH. alee will need rehab at dc given unsafe living conditions, placement denies by insurance, plan to apply for peer to peer. - Constitutional Vitals: Temp Pulse Resp BP Pulse Ox 98.3 F 78 16 147/76 96 04/27/17 15:31 04/27/17 15:31 04/27/17 15:31 04/27/17 15:31 04/27/17 15:31 General appearance: Present: cachectic, disheveled, A&O X 3, answers questions appropriately Exam: neck- supple chest- b/l clear, no added sounds CVS-s1 and s2, no mr//g abd-soft, non tender, bs are present ext- no edema neuro- no focal defecits Internal Medicine: Result - Labs CBC & Chem 7: 04/25/17 11:25 04/25/17 11:25 - VTE Documentation of Mechanical Device: Intermittent pneumatic compression device Consult Discharge Plan - Plan Referrals: Maria L Quick, MINGO [Primary Care Provider] - 05/13/17 11:00 am Prescriptions: Walker W Wheels [WHEELED WALKER] 1 each .ROUTE AD #1 each
[2017-04-27] MEDS: Budesonide/Formoterol 160/4.5 MDI IH SCH (20:28)
[2017-04-27] MEDS: Temazepam 15 MG CAPSULE PO PRN (21:10)
[2017-04-27] MEDS: Mirtazapine 15 MG TABLET PO SCH (21:11)
[2017-04-28] MEDS: Thiamine (B-1) 100 MG TABLET PO SCH (08:40)
[2017-04-28] MEDS: Folic Acid 1 MG TABLET PO SCH (08:40)
[2017-04-28] MEDS: Multivit/Ca/Min/Fe/FA 1 TAB TABLET PO SCH (08:40)
[2017-04-28] MEDS: Potassium Chloride Elixir 20 MEQ/15 ML UDC PO SCH (08:40)
[2017-04-28] MEDS: Nicotine 2 MG GUM BC PRN ×6 (08:48→19:36)
[2017-04-28] MEDS: 0.9 % Sodium Chloride 1,000 ML IVC SCH (08:49)
[2017-04-28] MEDS: Budesonide/Formoterol 160/4.5 MDI IH SCH ×2 (10:48→21:44)
[2017-04-28 12:00] LABS: BUN/Creatinine Ratio 15 (6-26); Blood Urea Nitrogen 11 mg/dL (8-26); Calcium 10.2 mg/dL (8.6-10.8); Carbon Dioxide 30 mEq/L (19-29); Chloride 106 mEq/L (98-109); Glucose 143 mg/dL (70-99); Osmolality,Calculated 298 (280-300); Potassium 3.8 mEq/L (3.5-4.5); Sodium 143 mEq/L (136-145); eGFR For African Americans > 60 (> 60); eGFR For Non-African Americans > 60 (> 60)
--- NOTE | 2017-04-28 14:49 | Internal Med Progress Note ---
Date of Encounter: 04/28/17 Time of Encounter: 14:46 - Assessment and plan (1) Alcohol abuse Current Visit: No Status: Chronic Assessment and plan: admitted for detox, he wishes to quit. no signs of withdrawal or seizures at this time continue CIWA protocol. PT/OT recommended HH. will need inpatient rehabilitation at discharge due to concerns for safety at home, applied for peer to peer await approval. (2) Elevated LFTs Current Visit: No Status: Acute Assessment and plan: possible 2/2 Alcoholic liver disease. will hold libriium now. (3) COPD (chronic obstructive pulmonary disease) Current Visit: No Status: Chronic Assessment and plan: not in exacerbation. o2 prn. albuterol prn Qualifiers: COPD type: unspecified COPD Qualified Code(s): J44.9 - Chronic obstructive pulmonary disease, unspecified (4) Depression Current Visit: Yes Status: Acute Assessment and plan: seen by psych, has been added on [facility]apine and [facility] appreciate psych recommendation. Qualifiers: Depression Type: major depressive disorder Major depression recurrence: recurrent Active/Remission status: currently active Psychotic features: without psychotic features Qualified Code(s): F33.2 - Major depressive disorder, recurrent severe without psychotic features - Subjective Interval history: patient seen at the bedside, admitted for alcohol detox. he is a chronic drinker and wishes to quit. social work has been consulted, no tremors, seizures or hallucinations psych was consulted for depression, mirtazapine was added. at this time, social work and health care specialist in board, concern for unsafe dc given poor living condition and unsteady gait with fall risk,on and off suicidal ideations, PT/OT recommended HH. patient will need rehab at dc given unsafe living conditions, placement denied by insurance, applied for peer to peer, await approval. - Constitutional Vitals: Temp Pulse Resp BP Pulse Ox 98.1 F 79 14 126/71 98 04/28/17 10:13 04/28/17 10:13 04/28/17 10:49 04/28/17 10:13 04/28/17 10:49 General appearance: Present: cachectic, disheveled, A&O X 3, answers questions appropriately Exam: neck- supple chest- b/l clear, no added sounds CVS-s1 and s2, no mr//g abd-soft, non tender, bs are present ext- no edema neuro- no focal defecits Internal Medicine: Result - Labs CBC & Chem 7: 04/25/17 11:25 04/28/17 11:08 Labs: BMP 04/28/17 11:08 Sodium 143 Potassium 3.8 Chloride 106 Carbon Dioxide 30 H BUN 11 Creatinine 0.72 Glucose 143 H Calcium 10.2 - VTE Documentation of Mechanical Device: Intermittent pneumatic compression device Consult Discharge Plan - Plan Referrals: Maria L Quick CNP [Primary Care Provider] - 05/13/17 11:00 am Prescriptions: Walker W Wheels [WHEELED WALKER] 1 each .ROUTE AD #1 each
[2017-04-28] MEDS: Mirtazapine 15 MG TABLET PO SCH (20:41)
[2017-04-28] MEDS: Temazepam 15 MG CAPSULE PO PRN (20:44)
[2017-04-29] MEDS: Nicotine 2 MG GUM BC PRN ×2 (05:01→11:11)
[2017-04-29] MEDS: Budesonide/Formoterol 160/4.5 MDI IH SCH (07:49)
[2017-04-29 10:55] VITALS: BP 150/83
[2017-04-29] MEDS: Thiamine (B-1) 100 MG TABLET PO SCH (11:11)
[2017-04-29] MEDS: Multivit/Ca/Min/Fe/FA 1 TAB TABLET PO SCH (11:11)
[2017-04-29] MEDS: Folic Acid 1 MG TABLET PO SCH (11:11)
--- NOTE | 2017-04-29 11:48 | Discharge Summary ---
Date of Encounter: 04/30/17 Time of Encounter: 11:37 - Discharge Diagnosis (1) Alcohol abuse Priority: Primary Status: Chronic (2) Elevated LFTs Priority: Primary Status: Acute (3) COPD (chronic obstructive pulmonary disease) Priority: Secondary Status: Chronic Qualifiers: COPD type: unspecified COPD Qualified Code(s): J44.9 - Chronic obstructive pulmonary disease, unspecified (4) Depression Priority: Primary Status: Acute Qualifiers: Depression Type: major depressive disorder Major depression recurrence: recurrent Active/Remission status: currently active Psychotic features: without psychotic features Qualified Code(s): F33.2 - Major depressive disorder, recurrent severe without psychotic features - Discharge Medications Prescriptions: Folic Acid 1 mg PO DAILY #30 tablet Mirtazapine [Remeron] 15 mg PO HS 30 Days Nicotine Gum [Nicorette gum] 4 mg BC Q2H PRN 30 Days PRN Reason: Nicotine Cravings Thiamine (B-1) [Vitamin B-1] 100 mg PO DAILY #30 tablet [employer] [WHEELED WALKER] 1 each .ROUTE AD #1 each Home Medications: Budesonide/Formoterol 160/4.5 [Symbicort 160/4.5] 2 puff IH BIDR 09/04/16 [ History] Temazepam [Restoril] 30 mg PO HS 11/06/16 [History] Albuterol Sulfate [Proair Respiclick] 2 puff IH Q4-6H PRN 04/21/17 [History] Aspirin Enteric Coated [Aspirin EC] 81 mg PO DAILY 04/21/17 [History] Kathe Back & Body 1 tab PO Q6H PRN 04/21/17 [History] Cod Liver Oil 1 each PO DAILY 04/21/17 [History] Cyanocobalamin (Vitamin B-12) [Vitamin B12] 1,000 mcg PO DAILY 04/21/17 [History ] Melatonin 10 mg PO HS PRN 04/21/17 [History] Multivit-Min/FA/Lycopen/Lutein [Centrum Silver Tablet] 1 each PO DAILY 04/21/17 [History] Vitamin B Complex [B Complex] 1 each PO DAILY 04/21/17 [History] Vitamin E (Dl,Tocopheryl Acet) [Vitamin E] 400 unit PO BID 04/21/17 [History] [employer] [WHEELED WALKER] 1 each .ROUTE AD #1 each 04/23/17 [Rx] Folic Acid 1 mg PO DAILY #30 tablet 04/29/17 [Rx] Mirtazapine [Remeron] 15 mg PO HS 30 Days 04/29/17 [Rx] Nicotine Gum [Nicorette gum] 4 mg BC Q2H PRN 30 Days 04/29/17 [Rx] Thiamine (B-1) [Vitamin B-1] 100 mg PO DAILY #30 tablet 04/29/17 [Rx] Allergies/Adverse Reactions: Allergies No Known Allergies Allergy (Verified 11/06/16 11:53) Date of admission: 04/21/17 14:45 Primary care physician: Maria L Quick CNP Consults: 04/21/17 16:13 Consult to [facility] [CONS] Routine Reason for SW Consult: ETOH withdrawl- ETOH rehab 04/21/17 16:19 Consult to Nutrition [CONS] Routine Comment: Consulting Provider: NUTRITION Reason for Dietary Consult: PO Supplementation 04/22/17 07:48 Consult to Physical Therapy [CONS] Routine Comment: Evaluate, develop and implement POC Reason for Consult: gait imbalance OT [Consult to Occupational Therapy] [CONS] Routine Comment: Evaluate, develop and implement POC Reason for Consult: gait imbalance 04/23/17 08:46 Consult to Psychiatry [CONS] Routine Consulting Provider: Psych[facility] [place] Reason for Consult: please assist in managing this patient with chronic alcoholic abuse and expresses being depressed. Call Completed: Yes 04/26/17 07:52 Consult to Occupational Therapy [CONS] Routine Comment: Evaluate, develop and implement POC Reason for Consult: Please reevaluate Consult to Physical Therapy [CONS] Routine Comment: Evaluate, develop and implement POC Reason for Consult: Please reevaluate Discharging clinician: Nuvia Vick Anticipated date of discharge: 04/29/17 - Patient Status Disposition: Home, Self-Care Condition: Fair Functional capacity at discharge: independent ambulation Overall status at discharge: patient is back to baseline - Discharge Instructions Instructions: Abuse of Alcohol (DC) Follow Up With: Maria L Quick CNP [Primary Care Provider] - 05/13/17 11:00 am - Diet and Activity Activity: resume usual activities as tolerated Diet: advance to your usual diet Interval History: Mr. Mathis is a 66 year old male has local history of COPD and alcohol abuse tobacco abuse. According to patient he has a long history of alcohol use started when he was approximately 19 years old. He consumes 750 ML's of vodka Plus several beers daily. According to the son he has been experiencing increasing confusion falls over the past few months. He has a unsteady gait and he lives alone. With his son,patient voiced that he did not want to live like this anymore and wanted to stop drinking. he was brought to the ER for further evaluation. Lab work was obtained which did reveal some elevation in his LFTs. Rest of lab work was unremarkable. CT of head was obtained which showed no acute intracranial abnormalities or bleeds. Patient was admitted for further workup and evaluation. HE was observed for alcohol withdrawal however he showed no signs of overt withdrawal. lobo was also consulted, the daughter reported that they found suicide notes at home, he was started on remeron and recommneded OP f/u. PT OT consultation recommended home health. However in discussion with the daughter,concern for unsafe dc given poor living condition and quite unsteady gait with fall risk,on and off suicidal ideations. alee will benefit from inpt. rehab at [facility] given unsafe living conditions, placement however has been denied by insurance. this has been explained to the alee and he is being dc today, he plans to go to [place] to inpt. rehab with his daughter. he is being dc in stable condition. Hospital course: Mr. Mathis is a 66 year old male - Time Spent with Patient Total time spent providing and/or coordinating discharge services: - Constitutional Vitals: Temp Pulse Resp BP Pulse Ox 98.3 F 72 18 150/83 96 04/29/17 10:54 04/29/17 10:54 04/29/17 10:54 04/29/17 10:54 04/29/17 10:54 General appearance: Present: cachectic, disheveled, A&O X 3, answers questions appropriately Exam: neck- supple chest- b/l clear, no added sounds CVS-s1 and s2, no mr//g abd-soft, non tender, bs are present ext- no edema neuro- no focal defecits - VTE Documentation of Mechanical Device: Intermittent pneumatic compression device
== END 2017-04-29 13:43 | disposition home or self-care (01) ==
LOC: 3ANU 13:03 → EMEROO 13:03 → 3ANU 15:45
PROVIDERS: ADMIT Internal Medicine Endocrinology, Diabetes & Metabolism; ATTEND Internal Medicine

== ENCOUNTER 2021-07-25 19:53 | Inpatient (IN) ==
[2021-07-25] MEDS ORDERED: Ketorolac 15 MG/ML VIAL IVP ONE (20:35)
[2021-07-25] MEDS ORDERED: diazePAM 10 MG/2 ML SYRINGE IVP STA (21:17)
[2021-07-25 22:26] LABS: Basophils # 0.1 K/mcL (0.0-0.2); Basophils % 0.6 %; Eosinophils # 0.3 K/mcL (0.0-0.6); Eosinophils % 2.8 %; Hematocrit 43.3 % (37.5-50.1); Hemoglobin 14.6 g/dL (12.9-16.9); Immature Granulocytes % 0.4 % (0-4); Lymphocytes # 1.2 K/mcL (0.6-4.6); Lymphocytes % 12.8 %; Mean Corpuscular HGB Conc 33.7 g/dL (31.6-35.5); Mean Corpuscular Hemoglobin 33.7 pg (28.0-33.3); Mean Platelet Volume 9.4 fL (9.4-12.4); Monocytes # 0.5 K/mcL (0.0-1.3); Monocytes % 5.7 %; Platelet Count 181 K/mcL (140-400); Red Blood Count 4.33 M/mcL (4.19-5.50); Red Cell Distribution Width 11.5 % (11.5-14.5); Segmented Neutrophils % 77.7 %
[2021-07-25 22:45] LABS: Alanine Aminotransferase 13 Units/L (7-52); Albumin 4.1 g/dL (3.5-5.7); Albumin/Globulin Ratio 1.7 (1.1-2.2); Alkaline Phosphatase 58 Units/L (34-104); Aspartate Amino Transferase 13 Units/L (13-39); BUN/Creatinine Ratio 15 (6-26); Bilirubin,Total 0.3 mg/dL (0.3-1.0); Blood Urea Nitrogen 14 mg/dL (8-23); Calcium 10.2 mg/dL (8.6-10.3); Carbon Dioxide 29 mEq/L (23-29); Chloride 107 mEq/L (98-107); Globulin 2.4 g/dL (2.4-3.5); Glucose 127 mg/dL (70-105); Osmolality,Calculated 294 (280-300); Potassium 3.5 mEq/L (3.5-5.1); Prothrombin Time 11.7 Seconds (9.4-12.1); Sodium 141 mEq/L (136-145); Total Protein 6.5 g/dL (6.4-8.9); eGFR For African Americans > 60 (> 60); eGFR For Non-African Americans > 60 (> 60)
[2021-07-25 23:54] LABS: Ethanol < 10 mg/dL (Less than 10)
[2021-07-26] MEDS ORDERED: Ondansetron 4 MG/2 ML VIAL IVP PRN ×2 (00:20→10:17)
[2021-07-26] MEDS ORDERED: Naloxone 0.4 MG/ML INJ IVP PRN (00:20)
[2021-07-26] MEDS ORDERED: Ketorolac 30 MG/ML VIAL IVP PRN (00:20)
[2021-07-26] MEDS ORDERED: Morphine Sulfate 2 MG/ML SYRINGE IVP ONE (01:33)
[2021-07-26] MEDS ORDERED: *HR* LORazepam 2 MG/ML VIAL IVP PRN ×3 (01:34)
[2021-07-26 04:36] LABS: Influenza A PCR Negative (Negative); Influenza B PCR Negative (Negative); Resp. Syncytial Virus PCR Negative (Negative)
[2021-07-26 04:37] LABS: SARS-CoV-2 by PCR (In House) Negative (Negative)
[2021-07-26] MEDS ORDERED: Rivastigmine Patch 9.5 MG PATCH.TD24 TD SCH (09:00)
[2021-07-26] MEDS: Thiamine (B-1) 100 MG TABLET PO SCH (09:44)
[2021-07-26] MEDS: Folic Acid 1 MG TABLET PO SCH (09:44)
[2021-07-26] MEDS ORDERED: Lidocaine -MPF 4% 5 ML AMPUL ONE ×2 (10:16→14:43)
[2021-07-26] MEDS ORDERED: Lidocaine -MPF 2% 2 ML VIAL ONE ×2 (10:16→14:43)
[2021-07-26] MEDS ORDERED: *HR* Succinylcholine 200 MG/10 ML VIAL IVP ONE ×2 (10:16→14:43)
[2021-07-26] MEDS ORDERED: Promethazine 6.25 MG in Water for inj. (sterile) 20 ML IVPB PRN (10:17)
[2021-07-26] MEDS ORDERED: *HR* OxyCODONE Immed Rel 5 MG TABLET PO PRN (10:17)
[2021-07-26] MEDS ORDERED: *HR* Propofol 200 MG/20 ML VIAL IVP ONE ×2 (10:18→14:43)
[2021-07-26] MEDS ORDERED: *HR* FentaNYL (PF) 100 MCG/2 ML VIAL ONE ×2 (10:18→14:43)
[2021-07-26] MEDS ORDERED: *HR* Rocuronium Bromide 50 MG/5 ML VIAL ONE (13:01)
[2021-07-26] MEDS ORDERED: Sugammadex Sodium 200 MG/2 ML VIAL IV ONE (13:15)
[2021-07-26] MEDS: *HR* HYDROmorphone PF 0.5 MG/0.5 ML SYRINGE IVP PRN ×2 (14:08→20:29)
[2021-07-26] MEDS ORDERED: Ondansetron 4 MG/2 ML VIAL ONE ×2 (14:43→19:03)
[2021-07-26] MEDS ORDERED: *HR* Metoprolol 5 MG/5 ML VIAL IVP ONE (19:47)
[2021-07-26] MEDS: *HR* Metoprolol 5 MG/5 ML VIAL IVP PRN ×2 (19:49→19:57)
[2021-07-26] MEDS ORDERED: Mirtazapine 15 MG TABLET PO SCH (21:00)
[2021-07-26] MEDS: Melatonin 3 MG TABLET PO PRN (21:35)
[2021-07-26] MEDS: traZODone 50 MG TABLET PO SCH (21:35)
[2021-07-26] MEDS: CeFAZolin 2 GM/120 ML BAG IVPB SCH (21:43)
[2021-07-27] MEDS: Rivastigmine Patch 9.5 MG PATCH.TD24 TD SCH ×2 (03:54→20:24)
[2021-07-27] MEDS: CeFAZolin 2 GM/120 ML BAG IVPB SCH (06:56)
[2021-07-27 08:02] LABS: BUN/Creatinine Ratio 21 (6-26); Blood Urea Nitrogen 17 mg/dL (8-23); Calcium 8.6 mg/dL (8.6-10.3); Carbon Dioxide 23 mEq/L (23-29); Chloride 105 mEq/L (98-107); Glucose 132 mg/dL (70-105); Osmolality,Calculated 287 (280-300); Potassium 4.1 mEq/L (3.5-5.1); Sodium 137 mEq/L (136-145); eGFR For African Americans > 60 (> 60); eGFR For Non-African Americans > 60 (> 60)
[2021-07-27] MEDS: Thiamine (B-1) 100 MG TABLET PO SCH (08:19)
[2021-07-27] MEDS: Aspirin Enteric Coated 81 MG Tablet PO SCH (08:19)
[2021-07-27] MEDS: Folic Acid 1 MG TABLET PO SCH (08:19)
[2021-07-27] MEDS: PARoxetine 20 MG TABLET PO SCH (08:19)
[2021-07-27] MEDS ORDERED: Haloperidol Lactate 5 MG/ML VIAL IVP ONE (09:19)
[2021-07-27 09:21] LABS: Basophils % 0.1 %; Eosinophils % 0.1 %; Hematocrit 34.3 % (37.5-50.1); Hemoglobin 11.2 g/dL (12.9-16.9); Immature Granulocytes % 0.2 % (0-4); Lymphocytes # 1.2 K/mcL (0.6-4.6); Lymphocytes % 14.2 %; Mean Corpuscular HGB Conc 32.7 g/dL (31.6-35.5); Mean Corpuscular Hemoglobin 33.3 pg (28.0-33.3); Mean Corpuscular Volume 102.1 fL (83.0-100.0); Mean Platelet Volume 9.6 fL (9.4-12.4); Monocytes % 12.9 %; Neutrophils # 5.9 K/mcL (1.6-8.9); Platelet Count 167 K/mcL (140-400); Red Blood Count 3.36 M/mcL (4.19-5.50); Red Cell Distribution Width 11.8 % (11.5-14.5); Segmented Neutrophils % 72.5 %; White Blood Count 8.1 K/mcL (4.3-11.1)
[2021-07-27] MEDS: *HR* Heparin 5,000 UNIT/ML VIAL SQ SCH (16:52)
[2021-07-27] MEDS: traZODone 50 MG TABLET PO SCH (20:20)
[2021-07-27] MEDS: Melatonin 3 MG TABLET PO PRN (21:57)
[2021-07-28] MEDS: *HR* Heparin 5,000 UNIT/ML VIAL SQ SCH ×2 (05:25→20:09)
[2021-07-28 06:31] LABS: Basophils % 0.4 %; Eosinophils # 0.1 K/mcL (0.0-0.6); Eosinophils % 1.6 %; Hematocrit 27.9 % (37.5-50.1); Immature Granulocytes % 0.3 % (0-4); Lymphocytes # 1.5 K/mcL (0.6-4.6); Lymphocytes % 20.6 %; Mean Corpuscular HGB Conc 34.4 g/dL (31.6-35.5); Mean Corpuscular Hemoglobin 34.7 pg (28.0-33.3); Mean Corpuscular Volume 100.7 fL (83.0-100.0); Mean Platelet Volume 9.5 fL (9.4-12.4); Monocytes # 0.9 K/mcL (0.0-1.3); Monocytes % 11.7 %; Neutrophils # 4.8 K/mcL (1.6-8.9); Platelet Count 154 K/mcL (140-400); Red Blood Count 2.77 M/mcL (4.19-5.50); Red Cell Distribution Width 11.6 % (11.5-14.5); Segmented Neutrophils % 65.4 %; White Blood Count 7.3 K/mcL (4.3-11.1)
[2021-07-28 06:32] LABS: Hemoglobin 9.6 g/dL (12.9-16.9)
[2021-07-28 06:53] LABS: BUN/Creatinine Ratio 17 (6-26); Blood Urea Nitrogen 12 mg/dL (8-23); Calcium 8.9 mg/dL (8.6-10.3); Carbon Dioxide 30 mEq/L (23-29); Chloride 100 mEq/L (98-107); Glucose 131 mg/dL (70-105); Osmolality,Calculated 282 (280-300); Potassium 3.4 mEq/L (3.5-5.1); Sodium 135 mEq/L (136-145); eGFR For African Americans > 60 (> 60); eGFR For Non-African Americans > 60 (> 60)
[2021-07-28] MEDS: Thiamine (B-1) 100 MG TABLET PO SCH (09:12)
[2021-07-28] MEDS: lisinopriL 20 MG TABLET PO SCH (09:12)
[2021-07-28] MEDS: BuPROPion SR (12 HR) 150 MG TABLET PO SCH (09:12)
[2021-07-28] MEDS: PARoxetine 20 MG TABLET PO SCH (09:12)
[2021-07-28] MEDS: Folic Acid 1 MG TABLET PO SCH (09:13)
[2021-07-28] MEDS: Aspirin Enteric Coated 81 MG Tablet PO SCH (09:13)
[2021-07-28] MEDS: traZODone 50 MG TABLET PO SCH (20:10)
[2021-07-28] MEDS: Rivastigmine Patch 9.5 MG PATCH.TD24 TD SCH (20:10)
[2021-07-28] MEDS: Melatonin 3 MG TABLET PO PRN (20:10)
[2021-07-28 21:39] LABS: Bacteria,Urine Few per hpf (None-Few); Bilirubin,Urine Negative (Negative); Blood,Urine Moderate (Negative); Clarity,Urine Clear (Clear); Color,Urine Light-Orange (Yellow); Glucose,Urine (UA) 30 mg/dL (Normal); Hyaline Casts,Urine Few per lpf (None Seen); Ketones,Urine Trace mg/dL (Negative); Leukocyte Esterase,Urine Negative (Negative); Mucus,Urine Few per lpf (None-Few); Nitrite,Urine Negative (Negative); Protein,Urine 50 mg/dL (Neg-Trace); RBC,Urine 15-30 per hpf (0-3); Specific Gravity,Urine 1.027 (1.010-1.025); Urobilinogen,Urine Normal (Normal)
[2021-07-29] MEDS: *HR* Heparin 5,000 UNIT/ML VIAL SQ SCH ×2 (06:48→17:12)
[2021-07-29] MEDS ORDERED: Isovue-370 500 ML BOTTLE IVP ONE (07:36)
[2021-07-29] MEDS: BuPROPion SR (12 HR) 150 MG TABLET PO SCH (08:11)
[2021-07-29] MEDS: Aspirin Enteric Coated 81 MG Tablet PO SCH (08:11)
[2021-07-29] MEDS: PARoxetine 20 MG TABLET PO SCH (08:11)
[2021-07-29] MEDS: Thiamine (B-1) 100 MG TABLET PO SCH (08:11)
[2021-07-29] MEDS: lisinopriL 20 MG TABLET PO SCH (08:12)
[2021-07-29] MEDS: Folic Acid 1 MG TABLET PO SCH (08:12)
[2021-07-29 09:46] LABS: Basophils % 0.4 %; Eosinophils # 0.2 K/mcL (0.0-0.6); Eosinophils % 2.7 %; Hematocrit 29.7 % (37.5-50.1); Hemoglobin 9.8 g/dL (12.9-16.9); Immature Granulocytes % 0.3 % (0-4); Lymphocytes # 1.2 K/mcL (0.6-4.6); Lymphocytes % 15.6 %; Mean Corpuscular Hemoglobin 33.7 pg (28.0-33.3); Mean Corpuscular Volume 102.1 fL (83.0-100.0); Mean Platelet Volume 9.8 fL (9.4-12.4); Monocytes # 0.9 K/mcL (0.0-1.3); Monocytes % 10.9 %; Neutrophils # 5.5 K/mcL (1.6-8.9); Platelet Count 182 K/mcL (140-400); Red Blood Count 2.91 M/mcL (4.19-5.50); Red Cell Distribution Width 11.6 % (11.5-14.5); Segmented Neutrophils % 70.1 %; White Blood Count 7.9 K/mcL (4.3-11.1)
[2021-07-29 10:06] LABS: BUN/Creatinine Ratio 21 (6-26); Blood Urea Nitrogen 16 mg/dL (8-23); Calcium 9.2 mg/dL (8.6-10.3); Carbon Dioxide 30 mEq/L (23-29); Chloride 99 mEq/L (98-107); Glucose 150 mg/dL (70-105); Osmolality,Calculated 286 (280-300); Potassium 3.5 mEq/L (3.5-5.1); Sodium 136 mEq/L (136-145); eGFR For African Americans > 60 (> 60); eGFR For Non-African Americans > 60 (> 60)
[2021-07-29] MEDS: traZODone 50 MG TABLET PO SCH (20:14)
[2021-07-29] MEDS: Rivastigmine Patch 9.5 MG PATCH.TD24 TD SCH (20:14)
[2021-07-29] MEDS ORDERED: *HR* Metoprolol 5 MG/5 ML VIAL IVP ONE (22:47)
[2021-07-30] MEDS: *HR* Heparin 5,000 UNIT/ML VIAL SQ SCH ×2 (06:39→18:00)
[2021-07-30] MEDS: Aspirin Enteric Coated 81 MG Tablet PO SCH (08:41)
[2021-07-30] MEDS: Folic Acid 1 MG TABLET PO SCH (08:42)
[2021-07-30] MEDS: Thiamine (B-1) 100 MG TABLET PO SCH (08:42)
[2021-07-30] MEDS: BuPROPion SR (12 HR) 150 MG TABLET PO SCH (08:42)
[2021-07-30] MEDS: PARoxetine 20 MG TABLET PO SCH (08:42)
[2021-07-30] MEDS: lisinopriL 20 MG TABLET PO SCH (08:42)
[2021-07-30] MEDS: traZODone 50 MG TABLET PO SCH (21:15)
[2021-07-30] MEDS: Rivastigmine Patch 9.5 MG PATCH.TD24 TD SCH (21:16)
[2021-07-31] MEDS: *HR* Heparin 5,000 UNIT/ML VIAL SQ SCH ×2 (06:36→18:13)
[2021-07-31] MEDS: Aspirin Enteric Coated 81 MG Tablet PO SCH (09:26)
[2021-07-31] MEDS: BuPROPion SR (12 HR) 150 MG TABLET PO SCH (09:27)
[2021-07-31] MEDS: Folic Acid 1 MG TABLET PO SCH (09:27)
[2021-07-31] MEDS: PARoxetine 20 MG TABLET PO SCH (09:27)
[2021-07-31] MEDS: lisinopriL 20 MG TABLET PO SCH (09:27)
[2021-07-31] MEDS: Thiamine (B-1) 100 MG TABLET PO SCH (09:27)
[2021-07-31] MEDS: Rivastigmine Patch 9.5 MG PATCH.TD24 TD SCH (21:57)
[2021-07-31] MEDS: traZODone 50 MG TABLET PO SCH (21:58)
[2021-08-01] MEDS: *HR* Heparin 5,000 UNIT/ML VIAL SQ SCH (05:46)
[2021-08-01] MEDS: Thiamine (B-1) 100 MG TABLET PO SCH (08:21)
[2021-08-01] MEDS: Folic Acid 1 MG TABLET PO SCH (08:22)
[2021-08-01] MEDS: lisinopriL 20 MG TABLET PO SCH (08:22)
[2021-08-01] MEDS: BuPROPion SR (12 HR) 150 MG TABLET PO SCH (08:22)
[2021-08-01] MEDS: Aspirin Enteric Coated 81 MG Tablet PO SCH (08:22)
[2021-08-01] MEDS: PARoxetine 20 MG TABLET PO SCH (08:22)
[2021-08-01 14:58] VITALS: BP 117/67; PULSE 75; TEMP 98.3; O2SAT 99
[2021-08-01 16:31] LABS: Adenovirus Not Detected (Not Detect); Bordetella Pertussis Not Detected (Not Detect); Chlamydophila pneumoniae Not Detected (Not Detect); Coronavirus 229E Not Detected (Not Detect); Coronavirus HKU1 Not Detected (Not Detect); Coronavirus NL63 Not Detected (Not Detect); Coronavirus OC43 Not Detected (Not Detect); Human Metapneumovirus Not Detected (Not Detect); Human Rhinovirus/Enterovirus Not Detected (Not Detect); Influenza A Subtype 2009 H1 Not Detected (Not Detect); Influenza B Not Detected (Not Detect); Mycoplasma pneumoniae Not Detected (Not Detect); Parainfluenza Virus 1 Not Detected (Not Detect); Parainfluenza Virus 2 Not Detected (Not Detect); Parainfluenza Virus 3 Not Detected (Not Detect); Parainfluenza Virus 4 Not Detected (Not Detect); Respiratory Syncytial Virus Not Detected (Not Detect); SARS-CoV-2 Not Detected (Not Detect)
== END 2021-08-01 17:50 | DRG 522 ==
LOC: 3NENU 19:53 → EMEROOARM 19:53 → SUATTDRO 22:57 → 3NENU 07-26 01:43 → SUATTDRO 07-26 20:08
PROVIDERS: ADMIT Internal Medicine; ATTEND Hospitalist